=== PATIENT | male | born 1930 | race Native Hawaiian/Other Pacific Islander ===

== ENCOUNTER 2017-05-12 17:31 | Outpatient (CLI) | payer OTHER | END 2017-05-12 17:48 | disposition short-term general hospital (02) | LOC: AMB 17:31 | DX: S41.112A Laceration without foreign body of left upper arm, initial encounter (principal); R07.81 Pleurodynia; S30.1XXA Contusion of abdominal wall, initial encounter; V49.88XA Car occupant (driver) (passenger) injured in other specified transport accidents, initial encounter; Y92.488 Other paved roadways as the place of occurrence of the external cause ==

== ENCOUNTER 2017-05-12 17:57 | Emergency (ER) | payer OTHER ==
[~2017-05-12] VITALS: Ht 177.8 cm; Wt 81.6 kg
[2017-05-12 22:50] VITALS: BP 139/74; TEMP 98
== END 2017-05-12 22:52 | disposition short-term general hospital (02) ==
LOC: ED 17:57
DX: S22.42XA Multiple fractures of ribs, left side, initial encounter for closed fracture (principal); S12.101A Unspecified nondisplaced fracture of second cervical vertebra, initial encounter for closed fracture; V89.2XXA Person injured in unspecified motor-vehicle accident, traffic, initial encounter
CPT/HCPCS: 36415; 96365; 99285; J1170